=== PATIENT | female | born 1980 | race Two or more races ===

== ENCOUNTER 2024-06-09 09:29 | Outpatient (CLI) | payer BC, SELFPAY | END 2024-06-09 09:30 | disposition home or self-care (01) | PROVIDERS: PCP Physician Assistant; Visit Provider Family Medicine | DX: M54.16 Radiculopathy, lumbar region (principal); M51.369 Other intervertebral disc degeneration, lumbar region without mention of lumbar back pain or lower extremity pain | CPT/HCPCS: 62323; J0702; Q9966 ==